=== PATIENT | male | born 1995 | race African-American/Black ===

== ENCOUNTER 2016-06-18 11:47 | Emergency (ER) | payer SELFPAY ==
[~2016-06-18] VITALS: Ht 167.6 cm; Wt 67.0 kg
[~2016-06-18 11:47] MED LIST: DICL75 PO; Z.0.NO CURRENT MEDS
[2016-06-18 11:48] VITALS: BP 129/75; PULSE 112; RESP 16; TEMP 97.9; O2SAT 97
[2016-06-18] MEDS ORDERED: LIDOCAINE HCL 1% 50 ML VIAL XX ONE (12:45)
[2016-06-18] MEDS ORDERED: cefTRIAXone 250 MG VIAL IM ONE (12:45)
--- NOTE | 2016-06-18 12:45 | PD ---
HPI Chief Complaint: Complaint Time Seen by Provider: 12:45 Travel History International Travel<30 days: No Contact w/Intl Traveler<30days: No Traveled to known affect area: No History of Present Illness HPI 20-year-old male presents to the emergency department for evaluation of burning with urination and urethral discharge for 1 day. Patient admits to unprotected sexual intercourse. He denies any fever, chills, nausea, vomiting, abdominal pain, hematuria, testicular or scrotal pain, rash. Aggravated with urination. Denies any alleviating factors. No other complaints. PFSH Social History Alcohol Use: No Tobacco Use: No Substance Use: No Allergies-Medications (Allergen,Severity, Reaction): Coded Allergies: No Known Allergies (Verified , 06/04/13) Reported Meds & Prescriptions Reported Meds & Active Scripts Active Keflex (Cephalexin) 500 Mg Cap 500 Mg PO Q12H [address] (Diclofenac Sod) 75 Mg Tab 75 Mg PO BID PRN Reported No Current Meds (Miscellaneous Medication) Misc Review of Systems Except as stated in HPI: all other systems reviewed are Neg Physical Exam Narrative GENERAL: Well-nourished and well-developed pleasant male patient in no acute distress who is nontoxic appearing. SKIN: Warm and dry. HEAD: Normocephalic and atraumatic. EYES: No injection, drainage, or hyphema noted. PERRLA. EOMI. ENT: No nasal drainage noted. Oropharynx is clear. NECK: Supple and the trachea is midline. CARDIOVASCULAR: Regular rate and rhythm. RESPIRATORY: Breath sounds are equal bilaterally with no accessory muscle use, wheezing, rhonchi, or crackles. GASTROINTESTINAL: Abdomen is soft, non-tender, and nondistended. NEUROLOGICAL: Awake, alert, and oriented. Normal speech and gait. Cranial nerves are grossly intact. Data Data Last Documented VS Vital Signs Date Time Temp Pulse Resp B/P Pulse Ox O2 Delivery O2 Flow Rate FiO2 06/18/16 11:48 97.9 112 16 129/75 97 Room Air Orders Ua Includes Microscopic (06/18/16 12:44) Gc And Chlamydia Pcr (06/18/16 12:44) Ceftriaxone Inj (Rocephin Inj) (06/18/16 12:45) Lidocaine 1% Inj (50 Ml) (Xylocaine 1% I (06/18/16 12:45) Azithromycin (Zithromax) (06/18/16 13:00) Labs Laboratory Tests Test 06/18/16 13:00 Urine Color YELLOW Urine Turbidity CLOUDY Urine pH 8.0 Urine Specific [place] 1.018 Urine Protein 30 mg/dL Urine Glucose (UA) NEG mg/dL Urine Ketones NEG mg/dL Urine Occult Blood SMALL Urine Nitrite NEG Urine Bilirubin NEG Urine Urobilinogen LESS THAN 2.0 MG/DL Urine Leukocyte Esterase LARGE Urine RBC 52 /hpf Urine WBC /hpf Urine Bacteria FEW /hpf MDM Medical Decision Making Medical Screen Exam Complete: Yes Emergency Medical Condition: Yes Differential Diagnosis Urethritis versus STI versus cystitis Narrative Course 20-year-old male presents to the emergency department for evaluation of burning with urination and urethral discharge for 1 day. Patient is afebrile, vital signs are stable. He admits to unprotected sexual intercourse. Discussed with the patient that he likely has an STI. We'll treat prophylactically for gonorrhea and chlamydia with Rocephin and azithromycin. He is instructed to follow-up at the health department for further STD testing. Patient verbalizes understanding and agreement with treatment plan. Urinalysis shows 30 protein, small occult blood, large leukocyte esterase, 52 red blood cells, innumerable white blood cells, few bacteria. Patient will be treated with Keflex for urinary tract infection. Diagnosis Primary Impression: Urethritis Additional Impression: STD exposure Referrals: [facility]. Patient Instructions: General Instructions Additional Instructions: Notify partners. Follow-up with the [facility] for further STD testing including syphilis and HIV. Return to the ED for any acute worsening of symptoms. Med/Other Pt SpecificInfo: Prescription(s) given Scripts Cephalexin (Keflex)500 Mg [id number] Mg PO Q12H 7 Days Ref 0 Prov:Jose Guadalupe Do MD 06/18/16 Disposition: 01 DISCHARGE HOME Condition: Stable Ruth Ventura Jun 18, 2016 12:45
[2016-06-18] MEDS ORDERED: AZITHROMYCIN 250 MG TAB PO ONE (13:00)
[2016-06-18 13:32] LABS: BACTERIA, URINE FEW /hpf; BLOOD, URINE SMALL (NEG); GLUCOSE,URINE NEG (NEG); KETONE, URINE NEG (NEG); NITRITE,URINE NEG (NEG); URINE COLOR YELLOW (YELLW/STRAW)
[2016-06-18] MEDS ORDERED: CEPH-460 PO (13:45)
[2016-06-18 16:35] LABS: CHLAMYDIA PCR NOT DETECTED (NOT DETECT); NEISSERIA PCR DETECTED (NOT DETECT)
[2016-06-19] MEDS ORDERED: AZITHROMYCIN 250 MG TAB PO SCH (09:00)
== END 2016-06-18 14:06 | disposition home or self-care (01) ==
LOC: NEPB 11:47
DX: N34.2 Other urethritis (principal); Z20.2 Contact with and (suspected) exposure to infections with a predominantly sexual mode of transmission; B96.89 Other specified bacterial agents as the cause of diseases classified elsewhere
CPT/HCPCS: 81001; 87086; 87491; 87591; 96372; 99283; J0696